=== PATIENT | male | born 1980 | race Two or more races ===

== ENCOUNTER → 2025-01-09 | Outpatient (CLI) | payer BC, MEDICAID, SELFPAY ==
--- NOTE | 2025-01-09 | XR_ITS ---
Examination: Bilateral wrists 6 views TECHNIQUE: AP oblique lateral each wrist total 6 views Exam date and time: January 09, 2025 0730 hours INDICATIONS: Bilateral wrist pain beginning 6 months ago. FINDINGS: Mild to moderate osteoarthritis bilateral radiocarpal navicular trapezium first carpometacarpal joints No fracture or dislocation involving either wrist No avascular necrosis IMPRESSION: Bilateral mild to moderate osteoarthritis
== END | disposition home or self-care (01) ==
LOC: CDIM 06:57
PROVIDERS: PCP Nurse Practitioner Family; Referring Provider Nurse Practitioner Family; Visit Provider Nurse Practitioner Family
DX: M19.032 Primary osteoarthritis, left wrist (principal); M19.031 Primary osteoarthritis, right wrist
CPT/HCPCS: 73110